=== PATIENT | female | born 1935 | race Caucasian/White ===

== ENCOUNTER 2021-07-27 03:44 | Observation (INO) ==
[2021-07-27 05:21] LABS: ABS Eosinophils 0.3 10^3/ul (0-0.6); ABS Monocytes 0.8 10^3/ul (0-0.8); ABS Neutrophils 7.4 10^3/ul (1.5-7.7); Eosinophil % 3.4 %; Hematocrit 49 % (35-47); Lymphocyte % 10.6 %; Mean Corpuscular HGB Conc 33 g/dL (31-36); Mean Corpuscular Hemoglobin 29 pg (27-31); Mean Corpuscular Volume 89 fL (80-97); Mean Platelet Volume 8.4 fL (7.4-10.4); Nucleated Red Blood Cells % 0.1; Platelet Count 271 10^3/uL (150-450); Red Blood Count 5.48 10^6 /uL (3.70-4.87); Red Cell Distribution Width 15 % (10-15); White Blood Count 9.6 10^3/uL (3.5-10.8)
[2021-07-27 05:37] LABS: ALT 6 U/L (7-52); Albumin 4.2 g/dL (3.2-5.2); Albumin/Globulin Ratio 1.4 (1-3); Alkaline Phosphatase 98 U/L (35-149); Blood Urea Nitrogen 14 mg/dL (6-24); CO2 Carbon Dioxide 25 mmol/L (22-32); Calcium 9.7 mg/dL (8.6-10.3); Chloride 106 mmol/L (101-111); Glucose 102 mg/dL (70-100); Lipase 45 U/L (11.0-82.0); Sodium 138 mmol/L (135-145); Total Protein 7.2 g/dL (6.4-8.9)
[2021-07-27 05:47] LABS: Anion Gap 7 mmol/L (2-11)
[2021-07-27 05:56] LABS: Urine Appearance Clear; Urine Bilirubin Negative (Negative); Urine Blood Negative (Negative); Urine Color Yellow; Urine Glucose Negative (Negative); Urine Ketones Negative (Negative); Urine Nitrite Negative (Negative); Urine Protein Negative (Negative); Urine Specific Gravity 1.006 (1.002-1.030); Urine Urobilinogen Negative (Negative)
[2021-07-27] MEDS ORDERED: Iodixanol (CONTRAST) 320 MG/ML 100 ML SDV IV ONE (06:00)
[2021-07-27 15:08] LABS: Rapid COVID-19 Molecular Undetected (Undetected)
[2021-07-28 12:07] LABS: TSH Ultra Thyroid Stim Horm 1.81 mcIU/mL (0.34-5.60)
[2021-07-30 15:39] VITALS: BP 114/63
== END 2021-07-30 15:50 | disposition home or self-care (01) ==
LOC: EDHOLD 03:44 → ED 03:44 → MED 19:08 → SUATTDRO 07-28 14:11
PROVIDERS: ADMIT Hospitalist; ATTEND Internal Medicine